=== PATIENT | male | born 1990 | race Two or more races ===

== ENCOUNTER 2022-11-03 11:17 | Emergency (ER) | payer OTHER ==
[~2022-11-03] VITALS: Ht 170.2 cm; Wt 84.8 kg
== END 2022-11-03 14:05 | disposition home or self-care (01) ==
LOC: ER 11:17
DX: S61.412A Laceration without foreign body of left hand, initial encounter (principal); W26.0XXA Contact with knife, initial encounter; Y93.9 Activity, unspecified; Y92.9 Unspecified place or not applicable; Y99.0 Civilian activity done for income or pay